=== PATIENT | female | born 1975 | race Caucasian/White ===

== ENCOUNTER → 2020-01-04 | Outpatient (CLI) | payer OTHER | LOC: M.CT 12:02 | PROVIDERS: ATTEND Specialist | DX: N83.201 Unspecified ovarian cyst, right side (principal); R19.09 Other intra-abdominal and pelvic swelling, mass and lump ==

== ENCOUNTER → 2020-01-18 | Outpatient (CLI) | payer OTHER | LOC: M.RAD 09:27 | PROVIDERS: ATTEND Specialist | DX: Z12.31 Encounter for screening mammogram for malignant neoplasm of breast (principal) ==

== ENCOUNTER → 2020-01-27 | Outpatient (CLI) | payer OTHER | LOC: M.LAB 10:49 | PROVIDERS: ATTEND Surgery | DX: Z01.812 Encounter for preprocedural laboratory examination (principal); Z11.59 Encounter for screening for other viral diseases; K63.89 Other specified diseases of intestine ==

== ENCOUNTER 2020-02-01 09:28 | Inpatient (IN) | payer OTHER ==
[~2020-02-01] VITALS: Ht 167.6 cm; Wt 59.0 kg
--- NOTE | ~2020-02-01 | OP ---
[address] [address] OPERATIVE REPORT Name: JAYLAN BARONE Room: [address] IN M.R.#: [id number] Admission: 02/02/20 Attend Phys: Vipin Lopez MD Discharge: 02/02/20 Date of : 79 Report #: [id number] THIS REPORT FOR: //name// cc: Nancy Amaral. Nancy Rahman. CORA ~ CC: Nancy Lopez DATE OF SERVICE: 02/02/2020 PRIMARY CARE PHYSICIAN: Nancy Amaral. PREOPERATIVE DIAGNOSIS: Suspected small bowel tumor. POSTOPERATIVE DIAGNOSIS: Negative exploratory laparotomy. OPERATIVE PROCEDURE DONE: 1. Diagnostic laparoscopy that was converted to exploratory laparotomy. 2. Mesenteric lymph node biopsy. OPERATING SURGEON: Vipin Lopez MD INDICATIONS FOR THE PROCEDURE: The patient is a 44-year-old female who presented with complaints of 1-week history of mid abdominal pain that she has been having. CT scan that was done showed small bowel mass in the terminal part of the jejunum and enteroscopy was attempted; however, they were not able to reach the suspected area. The patient was advised diagnostic laparoscopy and possible bowel resection. The patient showed understanding and agreed to proceed. DESCRIPTION OF PROCEDURE: After explaining to the patient in detail and informed consent was obtained, the patient was identified in the preoperative holding area. The patient was transferred to the operating room and was placed in supine position. Sequential compressive devices were placed for DVT prophylaxis. Preoperative antibiotics were given. After induction of anesthesia, the abdomen was prepped and draped in a sterile fashion. Through a right upper quadrant 1 cm incision and using Optiview technique, peritoneal cavity was entered and pneumoperitoneum was created. Thereafter, under direct vision, another 5 mm trocar was placed in the right lower quadrant. Another 5 mm trocar was placed in the right paraumbilical region. On initial inspection, I did not see any obvious masses or lesions. In the abdominal cavity, I inspected the small bowel from the ligament of Treitz up to the terminal ileum. I identified the area that was tattooed by the health services manager, which was the distal area where she was able to access, but was not able to identify the lesion. I continued to inspect the bowel back and forth at least 6 [place] [address] OPERATIVE REPORT Name: JAYLAN BARONE Room: [address] IN [facility].#: [id number] Admission: 02/02/20 Attend Phys: Vipin Lopez MD Discharge: 02/02/20 Date of : 79 Report #: [id number] was still not able to identify any obvious lesions on the small bowel. Some part of the small bowel appeared slightly dilated, I thought I will have to do an exploratory laparotomy and get a palpation of the small bowel to rule out any intrinsic lesions. Therefore, I made a 6 cm incision in the supraumbilical region. The peritoneal cavity was entered. The small bowel was then inspected and palpated again from the ligament of Treitz up to the terminal ileum. I did not see any obvious luminal masses or any other lesions. I also palpated the colon and I was unable to feel any obvious lesions. Rest of the abdomen appeared grossly normal. There were some small mesenteric lymph nodes that were not of any significant size but were noted, however, I just decided to proceed with the mesenteric lymph node biopsy as it was noted that some of the lymph nodes in this area appeared to be prominent on CT scan in the mid jejunum. A small incision on the mesenteric side was made. Lymph node was identified and was dissected from the surrounding structures and a small 1 cm lymph node was excised and was sent for histopathology. Absolute hemostasis was ensured. The abdominal incision was closed in layers using #1 PDS for the fascia. Skin was closed with 4-0 Monocryl. Dermabond was applied. The patient was stable at the end of the procedure. The patient was awoken from anesthesia and was transferred to the recovery room in stable condition. ESTIMATED BLOOD LOSS: Minimal. CONDITION OF THE PATIENT: Stable. FLUIDS GIVEN: Per anesthesia notes. SPECIMEN SENT: Mesenteric lymph node. COMPLICATIONS: None. ANESTHESIA: General anesthesia. By: [id number] Emiliano Lopez MD /goran
--- NOTE | ~2020-02-01 | H ---
[address] [address] HISTORY AND PHYSICAL Name: JAYLAN BARONE Room: [address] IN .R.#: [id number] Admission: 02/02/20 Attend Phys: Vipin Lopez MD Discharge: 02/02/20 Date of : 79 Report #: [id number] THIS REPORT FOR: //name// cc: Nancy Amaral. Nancy Rahman. CORA ~ For History and Physical please refer to the handwritten note in the patient's medical record. By: [facility] HealthMedical Records Staff KACY /[email or web address]
[~2020-02-01 09:28] MED LIST: CLARITIN10 MG PO
[2020-02-01 10:26] LABS: CALCIUM 8.2 mg/dL (8.5-10.1); CREATININE 0.6 mg/dL (0.6-1.3); POTASSIUM 3.9 mmol/L (3.5-5.1)
[2020-02-01 10:30] LABS: HEMOGLOBIN 13.5 gm/dL (12.0-15.0); MCH 31.8 pg (26.0-34.0); MCHC 34.6 g/dL (28.0-37.0); MCV 91.8 fL (80.0-100.0); MPV 8.5 fl. (7.2-11.1); RBC 4.25 mil/uL (4.20-5.00); RDW-CV 12.9 % (10.5-14.5); WBC 8.2 thou/uL (4.0-11.0)
[2020-02-01 10:31] LABS: ALBUMIN 3.6 g/dL (3.4-5.0); TOTAL BILIRUBIN 1.2 mg/dL (<0.1-1.0); TOTAL PROTEIN 6.9 g/dL (6.4-8.2)
[2020-02-01 15:00] VITALS: BP 149/87
[2020-02-01 20:15] VITALS: BP 127/88
[2020-02-02] VITALS: BP 107/76
[2020-02-02 03:45] VITALS: BP 115/76
[2020-02-02 08:01] VITALS: BP 116/67
[2020-02-02] MEDS ORDERED: NORCO 5-325 TA1 EAC2 PO (11:27)
[2020-02-02 11:28] VITALS: BP 116/67
--- NOTE | 2020-02-03 17:06 | PATH ---
[address] [address] PATHOLOGY RPT PROCEDURE Name: JAYLAN BARONE Room: [address] IN M.R.#: [id number] Admission: 02/02/20 Date of : 79 Discharge: 02/02/20 Report #: [id number] Path Case #: [id number] [facility] Accession Number: [id number] . 01 Material submitted: . lymph node - MESENTERIC LYMPH NODE . 01 Clinical history: . SMALL BOWEL MASS, NEGATIVE EXPLORATORY LAPAROTOMY . 02 Diagnosis: Mesenteric lymph node: - Benign lymph node with mild follicular hyperplasia. (MARY/db; 02/03/2020) LBQ 02/03/2020 1521 Local . 02 Electronically signed: . Vernon Ojeda MD, Pathologist NPI- [id number] . 01 Gross description: . The specimen is received in formalin, labeled "Jl, Jaylan, mesenteric lymph node" and consists of 2 segments of baeza tissue measuring 1.2 x 0.6 x 0.5 cm and 1.0 x 0.8 x 0.5 cm. They are sectioned revealing baeza cut surfaces and entirely submitted in A1. (SDY; 02/02/2020) SYU/SYU 02/02/2020 1325 Local . 02 Pathologist provided ICD-10: R59.9 . 02 CPT . 736440 Specimen Comment: A courtesy copy of this report has been sent to [phone], [phone] Specimen Comment: [phone], Specimen Comment: Report sent to ,DR CLEVELAND / DR CARREON Performed at: [address], [place], [place] [id number] MD Vinay River MD Phone: [phone] Performed at: 02 [facility] [address], [place], [place] [id number] MD Vernon Ojeda MD Phone: [phone]
== END 2020-02-02 12:30 | disposition home or self-care (01) | DRG 346 ==
LOC: M.PRE 09:28 → M.ORTHSURG 09:38 → M.TBA 09:38 → M.PRE 10:09 → M.ORTHSURG 14:53 → M.PRE 15:11 → M.ORTHSURG 02-02 10:18
PROVIDERS: ADMIT Surgery; ATTEND Surgery
PROC: 0DJD4ZZ Inspection of Lower Intestinal Tract, Percutaneous Endoscopic Approach (ICD-10-PCS; principal; 2020-02-02)
PROC: 07BB0ZX Excision of Mesenteric Lymphatic, Open Approach, Diagnostic (ICD-10-PCS; principal; 2020-02-02)
PROC: 3E0R3BZ Introduction of Anesthetic Agent into Spinal Canal, Percutaneous Approach (ICD-10-PCS; principal; 2020-02-02)
DX: K63.9 Disease of intestine, unspecified (principal); Z88.0 Allergy status to penicillin; Z53.31 Laparoscopic surgical procedure converted to open procedure

== ENCOUNTER → 2020-05-22 | Outpatient (CLI) | payer OTHER ==
[~2020-05-22] MED LIST changes: +NORCO 5-325 TA1 EAC2 PO
== END ==
LOC: M.CT 09:58
PROVIDERS: ATTEND Surgery
DX: N83.201 Unspecified ovarian cyst, right side (principal); K42.9 Umbilical hernia without obstruction or gangrene

== ENCOUNTER → 2021-05-14 | Outpatient (CLI) | payer OTHER | LOC: M.CT 08:00 | PROVIDERS: ATTEND Specialist | DX: K42.9 Umbilical hernia without obstruction or gangrene (principal) ==